=== PATIENT | male | born 1955 | race Caucasian/White ===

== ENCOUNTER → 2024-11-05 | Outpatient (CLI) | payer MEDICARE | END | disposition home or self-care (01) | LOC: MRI 08:47 | PROVIDERS: ATTEND Nurse Practitioner Family | DX: M47.817 Spondylosis without myelopathy or radiculopathy, lumbosacral region (principal); M48.07 Spinal stenosis, lumbosacral region; M51.379 Other intervertebral disc degeneration, lumbosacral region without mention of lumbar back pain or lower extremity pain; M51.27 Other intervertebral disc displacement, lumbosacral region ==

== ENCOUNTER 2025-01-23 14:26 | Emergency (ER) | payer MEDICARE ==
[~2025-01-23] VITALS: Ht 175.2 cm; Wt 77.1 kg
[2025-01-23] MEDS ORDERED: ceFAZolin sodium/sodium chlor 10 ML IV ONE (15:05)
[2025-01-23] MEDS ORDERED: Bacitracin Zinc 14 GM TUBE T ONE (16:00)
[2025-01-23] MEDS ORDERED: CEPHALEXIN500 M1 PO (16:06)
== END 2025-01-23 16:07 | disposition home or self-care (01) ==
LOC: ED 14:26
DX: S62.637A Displaced fracture of distal phalanx of left little finger, initial encounter for closed fracture (principal); W23.1XXA Caught, crushed, jammed, or pinched between stationary objects, initial encounter; Y93.89 Activity, other specified; Y92.89 Other specified places as the place of occurrence of the external cause; Y99.8 Other external cause status